=== PATIENT | female | born 1980 | race Caucasian/White ===

== ENCOUNTER → 2017-01-25 | Outpatient (CLI) | payer BC | LOC: BMCIMAGING 15:12 | DX: O02.1 Missed abortion (principal); O73.1 Retained portions of placenta and membranes, without hemorrhage; Z3A.00 Weeks of gestation of pregnancy not specified ==

== ENCOUNTER → 2017-07-10 | Outpatient (CLI) | payer BC | LOC: FIMAGING 11:11 | PROVIDERS: ATTEND Midwife | DX: O09.511 Supervision of elderly primigravida, first trimester (principal); O36.8310 Maternal care for abnormalities of the fetal heart rate or rhythm, first trimester, not applicable or unspecified; Z3A.09 9 weeks gestation of pregnancy ==

== ENCOUNTER → 2017-07-11 | Outpatient (CLI) | payer BC | LOC: FIMAGING 11:16 | PROVIDERS: ATTEND Midwife | DX: O09.521 Supervision of elderly multigravida, first trimester (principal); Z3A.01 Less than 8 weeks gestation of pregnancy ==

== ENCOUNTER 2018-06-17 15:00 | Emergency (ER) | payer BC ==
--- NOTE | 2018-06-17 15:56 | EDPHY ---
HPI/HX/ROS/PE/MDM Narrative: CHIEF COMPLAINT: Possible CO exposure HISTORY OF PRESENT ILLNESS: This patient is a 38 year old female who is 27 weeks , complaining of possible carbon monoxide exposure earlir today. Around 11:15, she went to a restaurant with family and was seated outside in a tent heated by propane. She and her father felt there was a strong smell of propane in the area. Towards the end of her meal, she began to feel quite warm and flushed. They reported this to a brand manager, and there was reportedly no CO detected on a CO monitor. They left the restaurant around 13:30 and she has felt well since then. She denies headache, nausea, or vomiting. She is primarily concerned for exposure to carbon monoxide. She has had no complications with her current , but has had two miscarriages in the past. She denies any vaginal bleeding and can feel the baby moving as normal. She denies history of hypertension. The patient notes that she was diagnosed with influenza on Monday , two days ago, and has been taking Tamiflu since then. She is no longer febrile and generally feels well. No fever, chills, chest pain, shortness of breath, palpitations, vomiting, diarrhea, urinary complaints, headache, lightheadedness. REVIEW OF SYSTEMS: A comprehensive 10 system review of systems is otherwise negative aside from elements mentioned in the history of present illness and medical decision making. PAST MEDICAL HISTORY: Takes ASA 81mg daily for preeclampsia prevention. SOCIAL HISTORY: . Employed. Lives in [place]. Former smoker, remote. VITAL SIGNS: Reviewed by me GENERAL: Well-developed, well-nourished, resting comfortably in no respiratory distress. HEENT: Atraumatic. Eyes: No icterus, no injection. Mouth: moist mucous membranes. No erythema or lesions. Neck: supple with no adenopathy. LUNGS: Somewhat "creaky" breath sounds likely secondary to recent flu diagnosis. No wheezes, rhonchi or rales. CARDIAC: Regular rate and rhythm, no rubs, murmurs or gallops. ABDOMEN:Gravid uterus. Soft, nontender, nondistended, bowel sounds normal. BACK: No CVA tenderness. EXTREMITIES: No trauma. No edema. Range of motion is normal throughout. NEURO: Alert and oriented, grossly nonfocal. SKIN: Warm and dry, no rash. PSYCHIATRIC: Normal mentation, no agitation. Portions of this note were transcribed by a medical office clerk. I personally performed a history, physical exam, medical decision making, and confirmed accuracy of information the transcribed note. ED Course: This 38 y/o female who is 27 weeks presents with concern for possible exposure to carbon monoxide at a restaurant earlier today. Plan for labs including carboxyhemoglobin level. Patient has been on room air away from the presumed possible CO source for the past two hours, since 13:30. She has been placed on supplemental oxygen here in the emergency department. 16:03 Case established with poison control. Case #[id number]. CO levels are normal on testing toady (1.2). Poison control does not recommend any further testing or intervention at this time. Reassessed patient. Discussed consult with poison control. The patient is reassured by this. Plan to discharge home in good condition. Follow up and return precautions discussed. She is comfortable with this plan. MDM: Diff dx considered included but not limited to carbon monoxide exposure, asphixiants, toxic inhalant exposure, natural gas exposure, propane exposure. - Data Points Medications Given: Discontinued Medications Sodium Chloride (Ns) 1,000 mls @ 0 mls/hr IV ONCE ONE; Wide Open PRN Reason: Protocol Stop: 06/17/18 16:05 Last Admin: 06/17/18 16:30 Dose: Not Given General Time Seen by Provider: 06/17/18 15:36 Initial Vital Signs: Initial Vital Signs Temperature (C) 37.1 C 06/17/18 15:20 Heart Rate 87 06/17/18 15:20 Respiratory Rate 18 06/17/18 15:20 Blood Pressure 150/83 H 06/17/18 15:20 O2 Sat (%) 96 06/17/18 15:20 O2 Delivery Mode Room Air Allergies/Adverse Reactions: No Known Allergies Allergy (Unverified 06/17/18 15:19) Home Medications: Medication Instructions Recorded Aspirin 06/17/18 06/17/18 Departure - Departure Disposition: Home, Routine, Self-Care Clinical Impression: with 27 completed weeks gestation, Concern for carbon monoxide exposure Condition: Good Instructions: (ED), Carbon Monoxide Poisoning (ED) Additional Instructions: Follow up with your primary care provider in 2-3 days for further concerns. Follow up with your [facility] regularly as scheduled. We spoke with poison control, who recommended no further treatment needed. Return to the emergency department for headache, nausea, vomiting, dizziness, or other worsening of condition or further concerns. Referrals: Carlotta Veras MD [Primary Care Provider] - As per Instructions Report Scribed for: Vivian Giles Report Scribed by: Luna Matson Date of Report: 06/17/18 Time of Report: 16:03
[2018-06-17] MEDS ORDERED: NS 1,000 ML IV ONE (16:04)
[2018-06-17 16:42] VITALS: BP 122/79
== END 2018-06-17 16:42 | disposition home or self-care (01) ==
DX: Z77.29 Contact with and (suspected) exposure to other hazardous substances (principal); Z3A.27 27 weeks gestation of pregnancy